=== PATIENT | male | born 1975 | race Caucasian/White ===

== ENCOUNTER 2018-06-11 12:11 | Emergency (ER) | payer MEDICAID ==
[2018-06-11] MEDS: MORPHINE SULFATE 10 MG/ML VIAL. IM (13:22)
[2018-06-11] MEDS ORDERED: MORPHINE SULFATE 4 MG/ML DISP.SYRIN. IM (13:30)
== END 2018-06-11 13:46 | disposition home or self-care (01) ==
LOC: ER 12:11
DX: K04.7 Periapical abscess without sinus (principal); I10 Essential (primary) hypertension; E03.9 Hypothyroidism, unspecified
CPT/HCPCS: 96372; 99283; J2270